=== PATIENT | female | born 1980 | race American Indian/Alaskan Native ===

== ENCOUNTER 2019-08-29 16:36 | Emergency (ER) | payer OTHER ==
[2019-08-29] MEDS ORDERED: ACETAMINOPHEN 500 MG TAB PO ONE (16:56)
--- NOTE | 2019-08-29 16:56 | Event Note ---
ED Screening Note Date of service: 08/29/19 Time: 16:56 ED Screening Note: 38 yo F, no PMH, presents w/ 2 day hx of dry cough, chest pain w/ cough, vomiting, body aches, fever and chills. Reports generalized weakness. Has taken ibuprofen at home. This initial assessment/diagnostic orders/clinical plan/treatment(s) is/are subject to change based on patients health status, clinical progression and re- assessment by fellow clinical providers in the ED. Further treatment and workup at subsequent clinical providers discretion. Patient/guardian urged not to elope from the ED as their condition may be serious if not clinically assessed and managed. Initial orders include: labs CXR rapid flu tylenol
[2019-08-29 17:56] LABS: Basophils % (Auto) 0.3 % (0.0-1.8); Eosinophils # (Auto) 0.1 K/mm3 (0.0-0.4); Eosinophils % (Auto) 1.4 % (0.0-4.3); Hematocrit 35.1 % (30.3-42.9); Hemoglobin 11.2 gm/dl (10.1-14.3); Lymphocytes # (Auto) 0.7 K/mm3 (1.2-5.4); Lymphocytes % (Auto) 7.4 % (13.4-35.0); Mean Corpuscular HGB Conc 32 % (30-34); Monocytes % (Auto) 11.6 % (0.0-7.3); Platelet Count 252 K/mm3 (140-440); Red Blood Count 5.03 M/mm3 (3.65-5.03); Red Cell Distribution Width 15.3 % (13.2-15.2)
[2019-08-29 18:09] LABS: Mean Corpuscular Volume 70 fl (79-97)
[2019-08-29 18:14] LABS: BUN/Creatinine Ratio 14; Blood Urea Nitrogen 11 mg/dL (7-17); Calcium 9.3 mg/dL (8.4-10.2); Hemolysis Index 0
--- NOTE | 2019-08-29 18:31 | XRay Report ---
CHEST 2 VIEWS INDICATION / CLINICAL INFORMATION: MAIN: cough X 3 DAYS. COMPARISON: None available. FINDINGS: SUPPORT DEVICES: None. HEART / MEDIASTINUM: No significant abnormality. LUNGS / PLEURA: No significant pulmonary or pleural abnormality. No pneumothorax. ADDITIONAL FINDINGS: No significant additional findings. IMPRESSION: 1. No acute findings. Signer Name: Davon Keys MD Signed: 08/29/2019 6:26 PM Workstation Name: [id number]
[2019-08-29] MEDS ORDERED: SODIUM CHLORIDE 0.9% 1000 ML 1,000 ML IV ONE (19:57)
[2019-08-29] MEDS ORDERED: methylPREDNISolone Sod Succinate 125 MG/2 ML INJ IV ONE (19:57)
[2019-08-29] MEDS ORDERED: IPRATROPIUM/ALBUTEROL SULFATE 3 ML AMPUL.NEB IH ONE (19:57)
[2019-08-29] MEDS ORDERED: ONDANSETRON 4 MG/2 ML INJ ONE (21:01)
[2019-08-29] MEDS ORDERED: ONDANSETRON 4 MG/2 ML INJ IV ONE (21:03)
[2019-08-29] MEDS ORDERED: LACTATED RINGERS 1,000 ML IV ONE (22:16)
[2019-08-29] MEDS ORDERED: FAMOTIDINE 20 MG/2 ML INJ IV ONE (22:16)
[2019-08-29 22:38] LABS: Bilirubin,Urine NEG (Negative); Blood,Urine NEG (Negative); Color,Urine Yellow (Yellow); Mucus,Urine FEW /HPF; Protein,Urine <15 mg/dL mg/dL (Negative); Urobilinogen,Urine < 2.0 mg/dL (<2.0)
[2019-08-30] MEDS ORDERED: SODIUM CHLORIDE 0.9% 1000 ML 1,000 ML ONE (00:12)
[2019-08-30] MEDS ORDERED: SODIUM CHLORIDE 0.9% 1000 ML 1,000 ML IV ONE (00:16)
[2019-08-30] MEDS ORDERED: LORazepam 2 MG/ML VIAL IV ONE (01:47)
[2019-08-30] MEDS ORDERED: KETOROLAC 30 MG/1 ML INJ IV ONE (01:47)
--- NOTE | 2019-08-30 03:19 | Emergency Department Report ---
- General Chief Complaint: Weakness Stated Complaint: n/sob Time Seen by Provider: 08/29/19 16:50 Source: patient Mode of arrival: Ambulatory Limitations: No Limitations - History of Present Illness Initial Comments: Patient is a 38-year-old -[place] female with no past medical history who presents to the ED with continued of acute onset persistent diffuse body aches and pains, nasal and sinus congestion, dry cough, sore throat, intermittent fever over 101F, chills, generalized weakness and lack of appetite for the last 3 days. Patient denies dizziness, syncope, chest pain, shortness of breath, abdominal pain, dysuria, urinary frequency and urgency, vaginal discharge, vaginal bleeding, change in vision or palpitations. Patient states that she has been taking ibuprofen at home with no relief. MD Complaint: fever, cough, sore throat, rhinorrhea, nasal congestion, sinus pain, other (diffuse body aches, nausea and vomiting) -: Sudden, days(s) (3) Severity: severe Severity scale (0 -10): 8 Quality: sharp, aching Consistency: constant Improves With: nothing Worsens With: nothing Context: sick contacts Associated Symptoms: denies other symptoms, fever, chills, myalgias, headache, rhinorrhea, nasal congestion, sore throat, cough, nausea, vomiting. denies: chest pain, shortness of breath, diarrhea, dysuria, rash, confusion, right sweats Treatments Prior to Arrival: Ibuprofen - Related Data Previous Rx's Medication Instructions Recorded Last Taken Type Metaxalone [Skelaxin] 800 mg PO TID PRN #15 tablet 09/03/18 Unknown Rx Benzonatate [Tessalon Perles] 100 mg PO Q8HR #30 capsule 08/30/19 Unknown Rx Cetirizine HCl [Zyrtec 10mg tab] 10 mg PO DAILY #30 tablet 08/30/19 Unknown Rx Doxycycline Hyclate 100 mg PO Q12H #20 tablet. 08/30/19 Unknown Rx Ibuprofen [Motrin] 600 mg PO Q8H PRN #30 tablet 08/30/19 Unknown Rx Ondansetron [Zofran Odt] 4 mg PO Q6HR PRN #20 tab.rapdis 08/30/19 Unknown Rx Allergies Allergy/AdvReac Type Severity Reaction Status Date / Time No Known Allergies Allergy Unverified 09/03/18 12:23 ED Review of Systems ROS: Stated complaint: n/sob Other details as noted in HPI Constitutional: chills, fever, malaise, weakness Eyes: denies: eye pain, eye discharge, vision change ENT: throat pain, congestion. denies: ear pain Respiratory: cough. denies: shortness of breath, wheezing Cardiovascular: denies: chest pain, palpitations Endocrine: no symptoms reported Gastrointestinal: nausea, vomiting. denies: abdominal pain, diarrhea Genitourinary: denies: urgency, dysuria, discharge Musculoskeletal: denies: back pain, joint swelling, arthralgia Skin: denies: rash, lesions Neurological: headache. denies: weakness, paresthesias Psychiatric: denies: anxiety, depression Hematological/Lymphatic: denies: easy bleeding, easy bruising ED Past Medical Hx - Past Medical History Previous Medical History?: No - Surgical History Past Surgical History?: Yes Additional Surgical History: - Social History Smoking Status: Never Smoker Substance Use Type: None - Medications Home Medications: Home Medications Medication Instructions Recorded Confirmed Last Taken Type Metaxalone [Skelaxin] 800 mg PO TID PRN #15 tablet 09/03/18 Unknown Rx Benzonatate [Tessalon Perles] 100 mg PO Q8HR #30 capsule 08/30/19 Unknown Rx Cetirizine HCl [Zyrtec 10mg tab] 10 mg PO DAILY #30 tablet 08/30/19 Unknown Rx Doxycycline Hyclate 100 mg PO Q12H #20 tablet.dr 08/30/19 Unknown Rx Ibuprofen [Motrin] 600 mg PO Q8H PRN #30 tablet 08/30/19 Unknown Rx Ondansetron [Zofran Odt] 4 mg PO Q6HR PRN #20 tab.rapdis 08/30/19 Unknown Rx ED Physical Exam - General Limitations: No Limitations General appearance: alert, in no apparent distress - Head Head exam: Present: atraumatic, normocephalic, normal inspection - Eye Eye exam: Present: normal appearance, PERRL, EOMI Pupils: Present: normal accommodation - ENT ENT exam: Present: normal orophraynx, mucous membranes moist, TM's normal bilaterally, normal external ear exam, other (grossly congested nasal passages; palpable severe frontal sinus tenderness) - Neck Neck exam: Present: normal inspection - Respiratory Respiratory exam: Present: normal lung sounds bilaterally, wheezes (mildly diffuse wheezes throughout). Absent: respiratory distress, rales, rhonchi, chest wall tenderness, accessory muscle use, prolonged expiratory - Cardiovascular Cardiovascular Exam: Present: normal rhythm, tachycardia, normal heart sounds. Absent: systolic murmur, diastolic murmur, rubs, gallop - GI/Abdominal GI/Abdominal exam: Present: soft, normal bowel sounds. Absent: tenderness, guarding, rebound, hyperactive bowel sounds, hypoactive bowel sounds - Extremities Exam Extremities exam: Present: normal inspection, full ROM, normal capillary refill - Back Exam Back exam: Present: normal inspection, full ROM. Absent: tenderness, muscle spasm, paraspinal tenderness - Neurological Exam Neurological exam: Present: alert, oriented X3, CN II-XII intact, normal gait, reflexes normal - Psychiatric Psychiatric exam: Present: normal affect, normal mood - Skin Skin exam: Present: warm, dry, intact, normal color. Absent: rash ED Course Vital Signs 08/29/19 08/29/19 08/29/19 16:50 17:00 18:00 Temperature 100.9 F H Pulse Rate 120 H Pulse Rate [ Bilateral Throughout] Respiratory 22 22 22 Rate Respiratory Rate [Bilateral Throughout] Blood Pressure 112/69 Blood Pressure 112/69 [Left] O2 Sat by Pulse 99 Oximetry 08/29/19 08/29/19 08/29/19 20:41 21:13 22:17 Temperature 99.3 F 98.7 F Pulse Rate 133 H 130 H Pulse Rate [ 116 H Bilateral Throughout] Respiratory 20 18 Rate Respiratory 20 Rate [Bilateral Throughout] Blood Pressure Blood Pressure 100/76 [Left] O2 Sat by Pulse 100 98 Oximetry 08/29/19 08/30/19 08/30/19 23:00 00:09 01:44 Temperature 99.5 F 99.3 F Pulse Rate 122 H 119 H Pulse Rate [ Bilateral Throughout] Respiratory 20 20 20 Rate Respiratory Rate [Bilateral Throughout] Blood Pressure Blood Pressure 103/66 [Left] O2 Sat by Pulse 97 93 97 Oximetry 08/30/19 08/30/19 08/30/19 02:02 02:32 02:59 Temperature 99.1 F Pulse Rate 104 H Pulse Rate [ Bilateral Throughout] Respiratory 20 20 20 Rate Respiratory Rate [Bilateral Throughout] Blood Pressure Blood Pressure 110/69 [Left] O2 Sat by Pulse 97 Oximetry ED Medical Decision Making - Lab Data Result diagrams: 08/29/19 17:21 08/29/19 17:21 - Radiology Data Radiology results: report reviewed, image reviewed Chest x-ray shows no acute cardiopulmonary abnormalities or pneumonitis. - Medical Decision Making This is a 38-year-old -[place] female with no past medical history who presented to the ED with like symptoms characterized by persistent diffuse body aches and pains, nasal and sinus congestion, persistent dry cough with pleuritic chest pain, nausea and vomiting, generalized weakness and fever up to 101F some chills and lack of appetite for 3 days. In the ED, patient is alert and oriented 3 and is not in distress, tachycardic and febrile in triage. Lab test results were reviewed and are all nonactionable including rapid influenza tests. Chest x-ray shows no acute cardiopulmonary abnormalities or pneumonitis. Patient was treated the ED with 3 L of normal saline IV bolus and 1 L lactated Ringer solution IV bolus. Patient was also treated for pain and fever. Patient's tachycardia persisted due to the patient's anxiety. On reevaluation after these treatments patient's tachycardia improved significantly from 130 bpm to 102 bpm. Patient was discharged home and advised to follow-up with her primary care physician in 5-7 days for reevaluation. Patient was advised to return to the ED immediately if symptoms get worse. - Differential Diagnosis Flu; Pneumonia; Sinusitis; Bronchitis; UTI Critical care attestation.: If time is entered above; I have spent that time in minutes in the direct care of this critically ill patient, excluding procedure time. ED Disposition Clinical Impression: Fever in adult, Flu-like symptoms, Acute upper respiratory infection, Dehydration, Nausea and vomiting in adult Acute frontal sinusitis, unspecified Qualifiers: Recurrence: non-recurrent Qualified Code(s): J01.10 - Acute frontal sinusitis, unspecified Disposition: DC-01 TO HOME OR SELFCARE Is pt being admited?: No Does the pt Need Aspirin: No Condition: Stable Instructions: Acute Bacterial Rhinosinusitis (ED), Dehydration (ED), Fever in Adults (ED), Acute Nausea and Vomiting (ED) Additional Instructions: Your symptoms are likely due to a viral syndrome. Take medication with food, drink plenty of fluids and follow up with her primary care physician in 5-7 days for reevaluation. Return to the ED immediately if symptoms get worse. Prescriptions: Doxycycline Hyclate 100 mg PO Q12H #20 tablet. Ibuprofen [Motrin] 600 mg PO Q8H PRN #30 tablet PRN Reason: Pain Benzonatate [Tessalon Perles] 100 mg PO Q8HR #30 capsule Ondansetron [Zofran Odt] 4 mg PO Q6HR PRN #20 tab.rapdis PRN Reason: Nausea Cetirizine HCl [Zyrtec 10mg tab] 10 mg PO DAILY #30 tablet Referrals: KIMBERLY ORTIZ MD [Staff Physician] - 7-10 days Time of Disposition: 03:24 Print Language: WOLOF
[2019-08-30 05:56] VITALS: BP 112/68
== END 2019-08-30 06:05 | disposition home or self-care (01) ==
LOC: ED 16:36
DX: J06.9 Acute upper respiratory infection, unspecified (principal); E86.0 Dehydration; R11.2 Nausea with vomiting, unspecified; J01.10 Acute frontal sinusitis, unspecified; Z98.890 Other specified postprocedural states; Z79.1 Long term (current) use of non-steroidal anti-inflammatories (NSAID); Z79.899 Other long term (current) drug therapy
CPT/HCPCS: 36415; 71046; 80048; 81001; 82140; 85025; 87400; 94640; 96361; 96374; 96375; 99284; J1885; J2060; J2405; J2930; J7030; J7120; 94644